=== PATIENT | male | born 1950 | race Caucasian/White ===

== ENCOUNTER 2021-05-03 10:31 | Day surgery (SDC) | payer BC, MEDICARE ==
[~2021-05-03 10:31] MED LIST: Metoclopramide 10 MG/2 ML SDV IV PRN
[2021-05-03] MEDS: Sodium Chloride 0.9% 1,000 ML IV SCH ×2 (11:38→14:17)
[2021-05-03] MEDS ORDERED: Atropine 0.4 MG/ML SDV ONE (14:00)
[2021-05-03] MEDS ORDERED: Propofol 1,000 MG/100 ML SDV ONE (14:00)
[2021-05-03 14:46] VITALS: BP 130/77; PULSE 92
--- NOTE | 2021-05-03 15:22 | OR ---
DATE OF OPERATION: 05/03/2021 SURGEON: Mike Watson MD PREOPERATIVE DIAGNOSIS: Surveillance colonoscopy. POSTOPERATIVE DIAGNOSIS: Surveillance colonoscopy. PROCEDURE: Colonoscopy. ANESTHESIA: MAC. ESTIMATED BLOOD LOSS: None. COMPLICATIONS: None. INDICATION FOR PROCEDURE: The patient is a 70-year-old male, who about 12 years ago had a colonoscopy, was found to have polyps at that time, failed to follow up until today. He otherwise denies any change in bowel habits. DESCRIPTION OF PROCEDURE: Informed consent was obtained from the patient. The patient was taken to the operating room, placed on the table in the left lateral decubitus position. Monitored anesthesia care was administered. Digital rectal exam performed, it was normal. Colonoscope was then advanced through the anus, directed towards the cecum. Cecum was reached and identified by appendiceal orifice and ileocecal valve. Colonoscope was then slowly withdrawn. No polyps, no masses. No areas of ischemia or inflammation identified. Few small diverticula in the sigmoid and descending colon. Rectum was also otherwise unremarkable. Colonoscope was then withdrawn. FINDINGS: Minimal sigmoid and descending diverticulosis. RECOMMENDATIONS: Would recommend repeat screening colonoscopy in 10 years. Also, high- fiber diet and plenty of water. CONCETTA/RAFAEL /[id number]
== END 2021-05-03 14:55 | disposition home or self-care (01) ==
LOC: LB.SDS 10:31
PROVIDERS: ATTEND Surgery
DX: Z12.11 Encounter for screening for malignant neoplasm of colon (principal); K57.30 Diverticulosis of large intestine without perforation or abscess without bleeding; I10 Essential (primary) hypertension; Z86.010 Personal history of colon polyps
CPT/HCPCS: 82947; G0105; J0461; J2704; J7030